=== PATIENT | female | born 1985 | race Hispanic/Latino ===

== ENCOUNTER 2019-10-27 09:31 | Emergency (ER) | payer OTHER ==
[2019-10-27 09:51] VITALS: BP 121/86
[2019-10-27] MEDS ORDERED: IBUPROFEN 600 MG TAB PO ONE ×2 (09:51→09:54)
[2019-10-27] MEDS ORDERED: LIDOCAINE-MPF (1%) 10 MG/1 ML VIAL 5 ML INFILTRATI ONE (11:17)
[2019-10-27] MEDS ORDERED: TETANUS,DIPH,PERTUSS(ACELL) VACCINE 0.5 ML SYRINGE IM ONE (11:17)
--- NOTE | 2019-10-27 11:23 | Emergency Department Report ---
ED Laceration HPI - HPI Chief Complaint: Wound/Laceration Stated Complaint: LAC TO LEFT FINGER Time Seen by Provider: 10/27/19 10:44 Occurred When: Today Location: Upper Extremity (left thumb) Severity: mild Tetanus Status: Not up to Date Laceration Symptoms: Yes Pain, No Foreign Body Sensation, No Numbness, No Weakness Other History: This is a 33-year-old female presents to the emergency room with laceration to left proximal thumb finger. Patient states she was at work using a dry box tender to open a box when she accidentally hit her leg ham. Patient states she is able to move left thumb in all directions. She denies sensation of foreign object. Patient states she does not recall her last tetanus vaccine. She denies numbness or tingling, swelling, drainage, or fever. ED Review of Systems ROS: Stated complaint: LAC TO LEFT FINGER Other details as noted in HPI Constitutional: denies: chills, fever Respiratory: denies: cough, shortness of breath, wheezing Cardiovascular: denies: chest pain, palpitations Gastrointestinal: denies: abdominal pain, nausea, diarrhea Skin: lesions (laceration to left proximal first finger). denies: rash Neurological: denies: headache, weakness, paresthesias Psychiatric: denies: anxiety, depression ED Past Medical Hx - Past Medical History Previous Medical History?: No - Surgical History Past Surgical History?: No - Social History Smoking Status: Never Smoker Substance Use Type: None - Medications Home Medications: Home Medications Medication Instructions Recorded Confirmed Last Taken Type Clindamycin [Clindamycin CAP] 300 mg PO Q8H #21 cap 10/27/19 Unknown Rx Ibuprofen [Motrin 800 MG tab] 800 mg PO Q8HR PRN #20 tablet 10/27/19 Unknown Rx Laceration Physical Exam - Exam General: Vital signs noted. No distress. Alert and acting appropriately. Wound Length (cm): 1 Laceration Location: Upper Extremity (left proximal phalanx) Full Body Front + Back: 1 - 1.5 cm laceration into the epidermis of the left proximal first finger, TTP, FROM, no surrounding cellulitis, no swelling, neurologically intact Laceration Exam: Yes Normal Distal CMS, No Foreign Body, No Exposed Tendon, Vessel, or Nerve, No Tendon Injury ED Course Vital Signs 10/27/19 09:49 Temperature 98.2 F Pulse Rate 82 Respiratory 18 Rate Blood Pressure 121/86 O2 Sat by Pulse 98 Oximetry ED Medical Decision Making - Medical Decision Making This patient was seen but is provided. Findings are stable. Patient is in no acute distress. There is a 1.5 cm laceration of the epidermis of the left first proximal phalanx, no surrounding cellulitis, no swelling, clean wound. Laceration closed with 3 sutures, review note. Given boostrix and analgesics while in ER. Start clindamycin and ibuprofen. Discussed ER care plan with patient. Patient agreed with plan. F/U with PCP in 7-10 days for suture removal. Patient discharged home stable. Critical care attestation.: If time is entered above; I have spent that time in minutes in the direct care of this critically ill patient, excluding procedure time. ED Disposition Clinical Impression: Laceration of finger of left hand without foreign body Qualifiers: Encounter type: initial encounter Finger: thumb Damage to nail status: without damage Qualified Code(s): S61.012A - Laceration without foreign body of left thumb without damage to nail, initial encounter Disposition: - TO HOME OR SELFCARE Is pt being admited?: No Condition: Stable Instructions: Suture Care (ED), Laceration (ED) Additional Instructions: Take antibiotics as prescribed for the full course. Avoid over use of left hand and prop arm up on pillows to decrease swelling. Follow up with Primary Care Provider. Return to ER if red, swollen, foul discharge, or fever. Prescriptions: Clindamycin [Clindamycin CAP] 300 mg PO Q8H #21 cap Ibuprofen [Motrin 800 MG tab] 800 mg PO Q8HR PRN #20 tablet PRN Reason: Pain , Severe (7-10) Referrals: [facility] [Outside] - 3-5 Days NED ANDRADE MD [Staff Physician] - 3-5 Days POOL MAZARIEGOS MD [Staff Physician] - 3-5 Days Forms: Work/School Release Form(ED) Time of Disposition: 11:25
== END 2019-10-27 13:05 | disposition home or self-care (01) ==
LOC: ED 09:31
DX: S61.012A Laceration without foreign body of left thumb without damage to nail, initial encounter (principal); Z79.1 Long term (current) use of non-steroidal anti-inflammatories (NSAID); Z79.899 Other long term (current) drug therapy; W45.8XXA Other foreign body or object entering through skin, initial encounter; Y93.89 Activity, other specified; Y92.89 Other specified places as the place of occurrence of the external cause; Y99.8 Other external cause status
CPT/HCPCS: 90471; 90715

== ENCOUNTER 2019-11-06 19:31 | Emergency (ER) | payer OTHER ==
[2019-11-06 20:27] VITALS: BP 113/77
--- NOTE | 2019-11-06 22:57 | Emergency Department Report ---
Suture/Staple Removal - HPI Chief Complaint: Laceration/Recheck/Suture Stated Complaint: SUTURE REMOVAL Time Seen by Provider: 11/06/19 22:51 When Sutures or Alexey Placed: 10/27/19 Wound Location: left thumb suture removal ED Review of Systems ROS: Stated complaint: SUTURE REMOVAL Other details as noted in HPI Comment: All other systems reviewed and negative ED Past Medical Hx - Social History Smoking Status: Never Smoker Substance Use Type: None - Medications Home Medications: Home Medications Medication Instructions Recorded Confirmed Last Taken Type Clindamycin [Clindamycin CAP] 300 mg PO Q8H #21 cap 10/27/19 Unknown Rx Ibuprofen [Motrin 800 MG tab] 800 mg PO Q8HR PRN #20 tablet 10/27/19 Unknown Rx Suture Removal Exam - Exam General: Vital signs noted. No distress. Alert and acting appropriately. Wound: No Pathologic Erythema, No Tenderness, No Drainage, No Pus, No Wound Dehiscence Other Systems: All other systems reviewed and are unremarkable. ED Course Vital Signs 11/06/19 20:25 Temperature 98.3 F Pulse Rate 108 H Respiratory 18 Rate Blood Pressure 113/77 O2 Sat by Pulse 100 Oximetry ED Recheck MDM - Medical Decision Making Patient states that some of the sutures had already fallen out, the rest of the sutures were removed without difficulty to the left thumb, patient tolerated well, no sutures remaining, no wound dehiscence, no signs of infection Critical care attestation.: If time is entered above; I have spent that time in minutes in the direct care of this critically ill patient, excluding procedure time. ED Disposition Clinical Impression: Visit for suture removal Disposition: [id number] TO HOME OR SELFCARE Is pt being admited?: No Does the pt Need Aspirin: No Condition: Stable Instructions: Acute Wound Care (ED) Additional Instructions: please continue to keep area clean, dry, covered. may wash with soap and water and immediately dry. no hot tub, no pool, no soaking in water. follow up with primary care doctor in the next 2-3 days. return to the emergency room for any new or worsening symptoms . Referrals: NED ANDRADE MD [Staff Physician] - 2-3 Days [facility] [Outside] - 2-3 Days Time of Disposition: 22:57 Print Language: POLISH
== END 2019-11-06 23:01 | disposition home or self-care (01) ==
LOC: ED 19:31
DX: Z48.02 Encounter for removal of sutures (principal); Z53.21 Procedure and treatment not carried out due to patient leaving prior to being seen by health care provider